=== PATIENT | male | born 1990 | race Hispanic/Latino ===

== ENCOUNTER 2018-04-16 19:16 | Emergency (ER) | payer OTHER ==
[2018-04-16] MEDS ORDERED: IBUPROFEN 600 MG TABLET ONE (19:34)
[2018-04-16] MEDS ORDERED: CEPHALEXIN 500 MG CAPSULE ONE (20:13)
== END 2018-04-16 20:30 | disposition home or self-care (01) ==
LOC: EDH 19:16
DX: L30.9 Dermatitis, unspecified (principal); Z72.0 Tobacco use
CPT/HCPCS: 73620

== ENCOUNTER 2018-08-12 01:29 | Emergency (ER) | payer OTHER ==
[2018-08-12] MEDS ORDERED: ACETAMINOPHEN EXTRA STRENGTH 500 MG TABLET ONE (02:08)
== END 2018-08-12 02:39 | disposition home or self-care (01) ==
LOC: EDH 01:29
DX: S00.03XA Contusion of scalp, initial encounter (principal); S00.511A Abrasion of lip, initial encounter; Z72.0 Tobacco use; Y00.XXXA Assault by blunt object, initial encounter; Y93.89 Activity, other specified; Y92.89 Other specified places as the place of occurrence of the external cause; Y99.8 Other external cause status
CPT/HCPCS: 99282

== ENCOUNTER 2018-10-19 21:00 | Emergency (ER) | payer OTHER ==
[2018-10-19] MEDS ORDERED: IBUPROFEN 400 MG TABLET ONE (21:43)
== END 2018-10-19 22:47 | disposition home or self-care (01) ==
LOC: EDH 21:00
DX: S83.8X1A Sprain of other specified parts of right knee, initial encounter (principal); Z72.0 Tobacco use; X50.1XXA Overexertion from prolonged static or awkward postures, initial encounter; Y93.01 Activity, walking, marching and hiking; Y92.89 Other specified places as the place of occurrence of the external cause; Y99.8 Other external cause status
CPT/HCPCS: 29505; 73562

== ENCOUNTER 2020-10-16 14:25 | Emergency (ER) | payer SELFPAY ==
[~2020-10-16] VITALS: Ht 180.3 cm; Wt 98.0 kg
[2020-10-16] MEDS ORDERED: LIDOCAINE 1%-EPI 1:100,000 20 ML VIAL IJ ONE (14:45)
[2020-10-16] MEDS ORDERED: TETANUS/DIPHTHERIA TOXOID [ADULT] 0.5 ML VIAL IM ONE (14:45)
[2020-10-16] MEDS ORDERED: HYDROCODONE/ACETAMINOPHEN 5/325 MG TAB PO ONE (14:45)
[2020-10-16 14:48] VITALS: BP 134/78
[2020-10-16 15:30] VITALS: BP 130/73
== END 2020-10-16 15:36 | disposition home or self-care (01) ==
LOC: EDH 14:45
DX: S61.411A Laceration without foreign body of right hand, initial encounter (principal); S61.511A Laceration without foreign body of right wrist, initial encounter; X58.XXXA Exposure to other specified factors, initial encounter; Y93.89 Activity, other specified; Y92.89 Other specified places as the place of occurrence of the external cause; Y99.8 Other external cause status
CPT/HCPCS: 12042; 73100; 90471; 90714

== ENCOUNTER 2024-10-02 11:05 | Emergency (ER) | payer BC ==
[~2024-10-02] VITALS: Ht 180.3 cm; Wt 102.2 kg
--- NOTE | 2024-10-02 12:37 | NUR ---
PT MOVED FROM LOBBY INTO FAST TRACK AT THIS TIME
--- NOTE | 2024-10-02 12:43 | HMCIMG ---
Lumbar spine 2 views: AP, lateral Clinical Information: pain Comparison: None Findings: Exam of the lumbosacral spine demonstrates no evidence of fracture, subluxation, or significant degenerative change. There is straightening of the spine consistent with spasm. The disc spaces are intact. The facet joints are preserved without significant degenerative changes Bone mineralization is normal. Impression: Lumbar spasm.
[2024-10-02] MEDS: ORPHENADRINE 60MG/2ML IM ONE (12:48)
[2024-10-02] MEDS: ketOROlac 30MG VIAL (30MG/ML) IM ONE (12:48)
[2024-10-02] MEDS ORDERED: NAPR-1196 PO (12:54)
[2024-10-02] MEDS ORDERED: METH-811 PO (12:54)
--- NOTE | 2024-10-02 12:54 | ERN ---
General Chief Complaint: Back Pain or Injury Stated Complaint: BACK PAIN Time Seen by MD: 11:06 Time Seen by Midlevel: 11:06 Source: patient History of Present Illness Allergies: Coded Allergies: No Known Allergies (Unverified Allergy, Unknown, 08/14/22) No Known Drug Allergies (Unverified Allergy, Unknown, 10/20/18) Past Medical History Past Medical History: No Pertinent History Medical History Other: denies pmhx Past Surgical History: None ED Course Orders Procedure Category Date Status Time Orphenadrine Citrate PHA 10/02/24 Complete (Norflex) 11:30 Ketorolac PHA 10/02/24 Complete Tromethamine 30mg/Ml 11:30 Lumbar Spine 2-3vws RAD 10/02/24 Resulted 11:22 Current Medications Medications (Trade) Dose Ordered Sig/Munira Route PRN Reason Start Time Stop Time Status Last Admin Dose Admin Ketorolac Tromethamine (toRADol) 30 mg ONCE ONCE IM 10/02/24 11:30 10/02/24 11:31 DC 10/02/24 12:48 Orphenadrine Citrate (Norflex) 60 mg ONCE ONCE IM 10/02/24 11:30 10/02/24 11:31 DC 10/02/24 12:48 Vital Signs Date Time Temp Pulse Resp B/P (MAP) Pulse Ox O2 Delivery O2 Flow Rate FiO2 10/02/24 11:18 98.1 110 18 143/93 98 Room Air* 0 21 10/02/24 11:14 98.1 110 18 143/93 98 Room Air 0 DX & DISP Disposition: Discharge Departure Impression: Primary Impression: Lumbar paraspinal muscle spasm Condition: Stable Scripts Naproxen (Naproxen) 250 Mg Tablet 1 TAB PO BID for pain for 5 Days, #10 TAB 0 Refills Prov: CALISTA DARNELL 10/02/24 Methocarbamol (Methocarbamol) 500 Mg Tablet 2 TAB PO TID for 5 Days, #30 TAB 0 Refills Prov: CALISTA DARNELL 10/02/24 Additional Instructions: Discharge home. Rest. Follow up with primary care in 24 hours. Return to the ER for any acute changes or worsening symptoms. If any medications were prescribed take as directed. Okay to continue home medications unless otherwise discussed during your visit in the emergency room today. Patient was also advised to follow-up with primary care physician in 1 to 2 days for continued monitoring. Referrals: KRISTIAN WINTERS MD (PCP) I performed the substantive portion of the visit. I have reviewed and personally made and approve the management plan that is documented in the notes by myself or the GUILLERMO. I acknowledge full responsibility for the patient's management plan. CALISTA DARNELL Oct 02, 2024 12:54
[2024-10-02 13:12] VITALS: BP 137/86; PULSE 95; RESP 18; TEMP 98.1; O2SAT 98
== END 2024-10-02 13:15 | disposition home or self-care (01) ==
LOC: EDH 11:05
DX: M62.830 Muscle spasm of back (principal)
CPT/HCPCS: 99284; 72100; 96372 ×2; J1885; J2360